=== PATIENT | male | born 1990 | race Caucasian/White ===

== ENCOUNTER 2018-07-16 20:57 | Emergency (ER) | payer BC ==
[~2018-07-16] VITALS: Ht 175.3 cm; Wt 81.8 kg
[2018-07-16 21:06] VITALS: TEMP 99
[2018-07-16 22:25] LABS: BASO % 0.2 % (0.0-2.0); EOS # 0.1 (0.0-0.7); EOS % 0.8 % (0-4.0); GRAN # 10.6 (1.4-6.5); HEMATOCRIT 44.9 % (42.0-52.0); LYMPH # 1.5 (1.2-3.4); LYMPH % 11.6 % (20.0-51.0); MEAN CELL VOLUME 84 fl (80.0-100.0); MEAN CORPUSCULAR HEMOGLOBIN 28 pg (27.0-31.0); MEAN CORPUSCULAR HGB CONC 33 g/dl (33.0-37.0); MEAN PLATELET VOLUME 9.6 fl (7.4-10.4); MONO # 0.8 (0.1-0.6); PLATELET COUNT 335 K/mm3 (130-400); RED BLOOD COUNT 5.38 M/mm3 (4.20-5.60); REDCELL DISTRIBUTION WIDTH-CV 13.1 % (11.5-14.5)
[2018-07-16 22:37] LABS: ALBUMIN 4.7 gm/dL (3.5-5.0); BILIRUBIN,TOTAL 0.5 mg/dL (0.0-1.0); CALCIUM 9.7 mg/dL (8.4-10.2); CREATININE, serum 0.94 mg/dL (0.66-1.25); TOTAL PROTEIN 8.1 gm/dL (6.4-8.2)
[2018-07-16] MEDS ORDERED: CRUTCHES MC (23:11)
[2018-07-16 23:16] VITALS: BP 120/77; PULSE 91
== END 2018-07-16 23:23 | disposition home or self-care (01) ==
LOC: COL.ER 20:57 → EDBD 20:58 → COL.ER 23:23
PROVIDERS: Emergency Medicine
DX: S99.922A Unspecified injury of left foot, initial encounter (principal); R55 Syncope and collapse; W21.07XA Struck by softball, initial encounter; Y93.64 Activity, baseball